=== PATIENT | male | born 1960 | race Caucasian/White ===

== ENCOUNTER 2018-01-14 09:55 | Day surgery (SDC) | payer OTHER ==
--- NOTE | 2018-01-13 16:59 | RAD REPORT ---
EXAM DESCRIPTION: RAD - Chest Pa And Lat (2 Views) - 01/13/2018 4:52 pm CLINICAL HISTORY: Preop chest, pending cholecystectomy COMPARISON: None. TECHNIQUE: PA and lateral views of the chest were obtained. FINDINGS: The lungs are clear of failure, infiltrate or mass. Lung markings are not outside of kayleen l range for patient age. Trachea is midline. Heart size is normal and central vasculature is within normal limits. No pleural effusion or pneumothorax seen. No acute bony finding noted. No aortic a bnormality. IMPRESSION: No acute cardiopulmonary process.
[2018-01-13 17:19] LABS: Absolute Monocytes 0.5 K/uL (0.1-1.3); Absolute Neutrophil 4.1 K/uL (1.8-8.0); Basophils % 0.9 % (0-1.3); Eosinophils % 3.2 % (0-4.4); Hematocrit 45.8 % (39.6-49.0); Lymphocytes % 28.8 % (15.3-44.8); MCH 31.2 pg (27.0-35.0); MCV 93.9 fL (80-100); MPV 10.1 fL (7.6-11.3); Monocytes % 7.7 % (3.3-12.3); RBC Red Blood Cell Count 4.87 M/uL (4.33-5.43)
[2018-01-13 17:32] LABS: Potassium 4.3 mEq/L (3.6-5.0)
[2018-01-13 17:48] LABS: Albumin 4.4 g/dL (3.2-5.5); Bilirubin Direct 0.1 mg/dL (0-0.2); Bilirubin Total 0.6 mg/dL (0.3-1.2); Protein, Total 6.9 g/dL (6.0-8.3)
--- NOTE | 2018-01-14 06:34 | EKG ---
Test Date: 2018-01-13 Test Time: 16:36:47 Conference Service Coordinator: MELINDA MEASUREMENT RESULTS: Intervals: Rate: 60 AR: 184 QRSD: 82 QT: 372 QTc: 372 [place]: P: 64 AR: 184 QRS: 23 T: 28 INTERPRETIVE STATEMENTS: Normal sinus rhythm Normal ECG No previous ECG available for comparison Electronically Signed On 01-14-18 06:34:27 CDT by Simon Lewis
[2018-01-14] MEDS ORDERED: NA CHLORIDE 0.9% 1,000 ML ONE ×2 (10:19→11:56)
[2018-01-14] MEDS ORDERED: PROPOFOL 200 MG/20 ML VIAL IV ONE (10:43)
[2018-01-14] MEDS ORDERED: LIDOCAINE 2% MPF 5 ML VIAL ONE (10:44)
[2018-01-14] MEDS ORDERED: MIDAZOLAM HCL 2 MG/2 ML INJ ONE (10:44)
[2018-01-14] MEDS ORDERED: FENTANYL CITR 100 MCG/2 ML ONE ×2 (10:45→11:53)
[2018-01-14] MEDS ORDERED: ROCURONIUM 50 MG/5 ML VIAL IV ONE (10:45)
[2018-01-14] MEDS ORDERED: ONDANSETRON HCL 40 MG/20 ML VIAL ONE (10:46)
[2018-01-14] MEDS ORDERED: GLYCOPYRROLATE 0.2 MG/ML SYR ONE ×3 (10:46→11:35)
[2018-01-14] MEDS ORDERED: NEOSTIGMINE 1 MG/ML -5 ML SYRINGE ONE (10:48)
[2018-01-14] MEDS ORDERED: CEFOXITIN/SWI 1gm 1 GM/10 ML SYR ONE (11:41)
--- NOTE | 2018-01-14 11:51 | P.BOP ---
Preoperative diagnosis: symptomatic cholelithiasis, gallbladder polyps, Postoperative diagnosis: same Primary procedure: Laparoscopic cholecystectomy Coding Coordinator: JUDITH CHAVEZ Estimated blood loss: <10cc Specimen: gb Findings: as above Anesthesia: General Complications: None Transferred to: Recovery Room Condition: Good
[2018-01-14] MEDS ORDERED: MEPERIDINE HCL 50 MG/ML AMP ONE (12:29)
[2018-01-14] MEDS ORDERED: CODEINE 30MG/APAP 300MG TAB ONE (13:25)
--- NOTE | 2018-01-15 00:31 | OP ---
Surgeon: Adán Pimentel MD Media Consultant Outside Sales: TORY Young. Preoperative Diagnoses: Symptomatic cholelithiasis, gallbladder polyps, right upper quadrant pain. Postoperative Diagnoses: Symptomatic cholelithiasis, gallbladder polyps, right upper quadrant pain. Procedure Performed: Laparoscopic cholecystectomy. Specimen: Gallbladder. Finding: As above. Anesthesia: General plus local. Indications: This is a case of a 58-year-old patient, who comes to us with the above diagnoses. Ful ly explained the benefits, alternatives, and risks of laparoscopic, possible open cholecystectomy, wh ich include but are not limited to infection, bleeding, damage to adjacent structures, anesthesia com plication, choledocholithiasis, bile leak, pancreatitis, NH, and even . He also understands thi s may not relieve any symptoms. He might need more than one surgical intervention. He understood. Signed the consent. Description Of Procedure: The patient was brought to the operating room, placed in supine position. Anesthesia was done without complication. Abdominal area was prepped and draped in sterile fashion. Marcaine 0.5% injected for local anesthetic, followed by sharp incision of the skin in the infraumb ilical region. Incision was carried down to fascia, which was opened under direct vision. Peritoneu m was encountered, opened under direct vision. Vicryl #1 placed inside the fascia. Inez trocar wa s carefully introduced. No bleeding was obtained. I placed 3 more trocars, 5 mm each one of them, 1 in epigastric area and 2 in the right upper quadrant using same technique under direct visualization . A grasper was placed in the fundus of the gallbladder, another grasper in the infundibulum. The g allbladder was retracted in the inferolateral fashion exposing the triangle of Calot and obtaining cr itical view of safety. The cystic duct and cystic artery were clearly isolated and freed circumfercandy deshpande, and a connection between those and the gallbladder were clearly identified. I proceeded to l igate those by using at least 2 clips proximal, 1 clip distal, ligation in middle. Same was done wit h the cystic artery. No bile leak. No bleeding. The gallbladder was removed from the liver using B ovie cauterizer and removed from the abdominal cavity using EndoCatch through the umbilical incision. The area was inspected once again. No bile leak. No bleeding. At that moment, I proceeded to rem ove the trocars under direct vision, and deflated pneumoperitoneum. Closed the fascia with #1 Vicryl . Irrigated subcu tissue, closed that with 3-0 chromic, and the skin in a subcuticular fashion. Spo nge count and instrument counts were correct. The patient tolerated the procedure well. The patient was sent to recovery in stable condition. DISCHARGE SUMMARY Diagnoses: Symptomatic cholelithiasis, gallbladder polyps. Procedure: Laparoscopic cholecystectomy. Disposition: Home. Activity: As tolerated. No heavy lifting. Followup: Follow up in my office 1 week. Call for appointment on [phone]. Discharge Instructions: Keep the area dry for 48 hours, then may shower. Keep Steri-Strips intact. Medications: Include Tylenol No. 3 q.4 hours p.r.n. pain and Bactrim DS p.o. b.i.d. DEANN/JEROME Voice ID: [id number] Report ID: [id number]
== END 2018-01-14 13:45 | disposition home or self-care (01) ==
LOC: OR 09:55
PROVIDERS: ATTEND Surgery
PROC: 0FT44ZZ Resection of Gallbladder, Percutaneous Endoscopic Approach (ICD-10-PCS; principal; 2018-01-14 11:15)
DX: K80.20 Calculus of gallbladder without cholecystitis without obstruction (principal); E11.9 Type 2 diabetes mellitus without complications
CPT/HCPCS: 36415; 71046; 80048; 80076; 82150; 82962; 83690; 85025; 88304; 93005; J2175; J2250; J2405; J2710; J3010; J7030